=== PATIENT | female | born 1980 | race Caucasian/White ===

== ENCOUNTER 2022-10-10 13:59 | Emergency (ER) | payer OTHER, SELFPAY ==
[2022-10-10 14:12] VITALS: BP 119/78; PULSE 92; RESP 14; TEMP 37.2; O2SAT 100; BMI 23.6
--- NOTE | 2022-10-10 14:23 | ED_ITS ---
HPI - Extremity Problem General: Chief complaint: Extremity Injury, Lower Stated complaint: Right foot injury Time Seen by Provider: 10/10/22 14:08 History of Present Illness: Patient is a 42-year-old female comes to the ED with right ankle injury. Patient says injury occurred about 6 days ago. She was working and got her foot caught under a stack of pallets. She is now having pain and swelling in her right ankle. Patient currently states she has a history of osteomyelitis and right ankle that is currently being treated and managed by a provider in Associated symptoms: Deny chest pain, fever(s) or rash Review of Systems Const: Denies: fever(s), chills or fatigue Eyes: Denies: change in vision or eye discomfort ENMT: Denies: throat pain, odynophagia, nasal discharge or nasal congestion Card: Denies: chest pain, palpitations, edema, swelling of feet/ankles, dyspnea on exertion or orthopnea Resp: Denies: dyspnea, productive cough or non-productive cough GI: Denies: abdominal pain, nausea, vomiting, diarrhea, constipation or hematochezia : Denies: flank pain, dysuria or hematuria Musc: Reports: extremity pain (Right ankle) and extremity swelling (Right ankle); Denies: neck pain or back pain Skin/Breast: Denies: rash or new lesions Neuro: Denies: headache(s), numbness in extremities or weakness in extremities PFS ED PFSH: Medical History No pertinent family history Surgical History No pertinent past surgical history Physical Exam Const: COMMON NORMALS: no acute distress, patient oriented x3 and alert GENERAL APPEARANCE: cooperative and comfortable HENMT: COMMON NORMALS: normocephalic HEAD & SCALP: normocephalic MOUTH: Normal oral and palatal mucosa present THROAT: posterior oropharynx normal and uvula midline Neck/C-Spine: COMMON NORMALS: supple GENERAL: Yes normal visual inspection Resp: COMMON NORMALS: normal respiratory effort, No retractions, No use of accessory muscles and clear to auscultation bilaterally AUSCULTATION: clear to auscultation bilaterally Cardio: COMMON NORMALS: regular rate, regular rhythm, S1 normal heart sound present, S2 normal heart sound present, No gallops present (Cardio), No clicks present (Cardio), No murmurs present (Cardio) and Peripheral pulses 2+ throughout RATE: regular rate RHYTHM: regular rhythm HEART SOUNDS: S1 normal heart sound present and S2 normal heart sound present PERIPHERAL PULSES: Peripheral pulses 2+ throughout GI: COMMON NORMALS: Normal to inspection, nondistended, normoactive bowel sounds present, Soft to palpation, non-tender and no masses PALPATION: Yes Soft to palpation : COMMON NORMALS: Yes no CVA tenderness BLADDER/KIDNEY EXAM: Yes no CVA tenderness Back/Pelvis: COMMON NORMALS: no CVA tenderness Extremity: RIGHT LOWER EXTREMITY: Yes foot & digits Right ankle: Yes inspection (No visible deformity, ecchymosis and swelling around lateral malleolus), Yes palpation (Tenderness over lateral malleolus), Yes ROM (Limited range of motion due to pain) and Yes neurovascular exam (Neurovascular intact) Neuro: COMMON NORMALS: patient oriented x3 SENSORIUM/ORIENTATION: Yes alert GAIT: Yes Normal gait present Skin: GENERAL SKIN EXAM: dry skin Course Vital Signs: Vital signs: Vital Signs Temperature 99.0 F 10/10/22 14:12 Pulse Rate 92 10/10/22 14:12 Respiratory Rate 14 10/10/22 14:12 Blood Pressure 119/78 10/10/22 14:12 Pulse Oximetry 100 10/10/22 14:12 Oxygen Delivery Me thod 10/10/22 14:12 MDM - Extremity (Nontraumatic) Medical Decision Making Patient is a 42-year-old female comes to the ED with right ankle injury. Patient has swelling and ecchymosis around lateral malleolus of right ankle. Limited range of motion due to pain. Tenderness to the lateral malleolus. Neurovascular intact. X-ray of right ankle showed no acute fractures or findings, but noted old injury. Patient was diagnosed with ankle sprain and strain and discharged home with crutches. Told to follow-up with his PCP in the next 7 to 10 days for reevaluation. Patient understood and agreed with plan Lab Data Radiology Impressions Ankle X-Ray 10/10/22 14:24 IMPRESSION: 1. No acute fracture or dislocation. 2. 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 Soft tissue swelling. Discharge Plan Discharge Patient Disposition: Home Clinical Impression: Sprain and strain of ankle Condition: Stable Prescriptions: New Celebrex 100 mg capsule 100 mg PO BID PRN (Reason: pain) Qty: 30 0RF Discharge Orders: Discharge ED (Routine); Ordered 10/10/22 Ordered By: Chapo Hooks Discharge Diet: Regular Discharge Activity: Increase activity as tolerated and Use walker/crutches as instructed Patient Instructions: Ankle Sprain (DC) Activity Restrictions/Additional Instructions: Follow-up with medical provider as directed in the next 7 to 10 days for reevaluation. Use crutches and limit weightbearing for the next 2 to 3 days and slowly advance weightbearing as tolerated. Rest, ice and elevate her right leg. Take medications as prescribed. Return to the ER or your medical provider if condition worsens. Please read and understand discharge instructions. Thank you for choosing [facility] for your healthcare needs today. Please realize this is an emergency room and that we are providing you with a medical screening exam and this may not be complete and all inclusive of all the testing and or work up that you may need to determine your ailment or severity of your illness. It is very important that you follow up as instructed or that you return to the Emergency Department should you have concerns or if your condition changes or worsens in any way. Coding Level of Care Code ED [employer] for Ariana Ortega Exam Comprehensive
--- NOTE | 2022-10-10 14:24 | XR_ITS ---
WS: [id number] Exam: XR ankle RT min 3V* [id number] Date/Time of Exam: 10/10/2022 2:24 PM Reason For Exam: pallets fell on ankle No acute fracture or dislocation. 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 Post operative changes in the calcaneus and talus. 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 Medial soft t issue swelling. 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 XR/XR ankle RT min 3V* [id number] IMPRESSION: 1. No acute fracture or dislocation. 2. 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 Soft tissue s welling.
[2022-10-10] MEDS: HYDROcodone-acetaminophen 5-325 mg Tablet 1 TAB PO (15:03)
== END 2022-10-10 15:31 | disposition home or self-care (01) ==
PROVIDERS: Emergency Provider Physician Assistant
DX: S93.401A Sprain of unspecified ligament of right ankle, initial encounter (principal); X58.XXXA Exposure to other specified factors, initial encounter
CPT/HCPCS: 73610; 99283; E0114